=== PATIENT | male | born 1965 | race Hispanic/Latino ===

== ENCOUNTER 2018-08-11 05:26 | Day surgery (SDC) | payer MEDICAID ==
[~2018-08-11] VITALS: Ht 162.6 cm; Wt 93.0 kg
[~2018-08-11 05:26] MED LIST: ASPI-1012 PO; LOSA50TA64 PO; METF-805 PO; METO-408 PO; PHEN100P12 MC; SIMV40TA5 PO
[2018-08-11 06:02] VITALS: BP 142/83
[2018-08-11] MEDS ORDERED: SODIUM CHLORIDE 0.9% 1000ML 1,000 ML IV ONE (06:15)
[2018-08-11] MEDS ORDERED: PROPOFOL 10 MG/ML 20ML VIAL IV ONE ×2 (07:13→07:42)
[2018-08-11] MEDS ORDERED: SODIUM CHLORIDE 0.9% 10 ML VIAL ONE (07:33)
[2018-08-11] MEDS ORDERED: PHENYLEPHRINE HCL 10 MG/ML 1ML VIAL IV ONE (07:33)
[2018-08-11 07:47] VITALS: BP 107/54
[2018-08-11 07:52] VITALS: BP 111/79
[2018-08-11 07:56] VITALS: BP 120/74
[2018-08-11 08:07] VITALS: BP 119/76
--- NOTE | 2018-08-11 08:10 | NUR ---
PT SHOWED NO SEIZURE ACTIVITY. PT [id number]
[2018-08-11 08:16] VITALS: BP 120/70
== END 2018-08-11 08:17 | disposition home or self-care (01) ==
LOC: DAH 05:26 → ENDO 05:26 → EDSTATUS 15:44
PROVIDERS: ATTEND Internal Medicine
DX: Z12.11 Encounter for screening for malignant neoplasm of colon (principal); D12.0 Benign neoplasm of cecum; D12.3 Benign neoplasm of transverse colon; D12.2 Benign neoplasm of ascending colon; Z86.010 Personal history of colon polyps; E11.9 Type 2 diabetes mellitus without complications; E78.5 Hyperlipidemia, unspecified; I10 Essential (primary) hypertension; Z86.73 Personal history of transient ischemic attack (TIA), and cerebral infarction without residual deficits; Z68.34 Body mass index [BMI] 34.0-34.9, adult; Z79.84 Long term (current) use of oral hypoglycemic drugs; Z79.899 Other long term (current) drug therapy; Z79.82 Long term (current) use of aspirin; Z80.0 Family history of malignant neoplasm of digestive organs; Z83.3 Family history of diabetes mellitus; Z82.49 Family history of ischemic heart disease and other diseases of the circulatory system
CPT/HCPCS: 45385; 82948 ×2; 88305; 93005; A4606; J2370; J2704 ×2; J7030